=== PATIENT | female | born 1930 | race Two or more races ===

== ENCOUNTER 2017-06-30 14:44 | Emergency (ER) | payer SELFPAY ==
[2017-06-30 15:05] VITALS: BP 175/96; PULSE 88; TEMP 98.4; BMI 18.8
--- NOTE | 2017-06-30 16:01 | PDOC ---
History of Present Illness <Laura Sheldon - Last Filed: 06/30/17 17:39> - General History Source: Patient Exam Limitations: No Limitations - History of Present Illness Initial Comments: 06/30/17 17:51 The patient is an 86 year old female with history significant for chronic suprapubic catheter here today for suprapubic catheter exchange. She states that last night she noticed her catheter seemed to be getting blocked. Today, she noticed suprapubic discomfort and distention. She is still able to produce some urine through her catheter. No fever or chills. No nausea, vomiting, or diarrhea. She brought her own suprapubic catheter for exchange. <Sunshine Xiong - Last Filed: 06/30/17 17:55> - General Chief Complaint: Urinary Catheter Problem Stated Complaint: URINARY CATHETER CHANGE Time Seen by Provider: 06/30/17 14:45 Past History - Past Medical History COPD: No Disorders: Yes (SUPRPUBIC CATHETER) HTN: Yes - Suicide/Smoking/Psychosocial Hx Smoking History: Never smoked Hx Alcohol Use: No Drug/Substance Use Hx: No Substance Use Type: None <Laura Sheldon - Last Filed: 06/30/17 17:39> <Sunshine Xiong - Last Filed: 06/30/17 17:55> - Past Medical History Allergies/Adverse Reactions: Allergies Allergy/AdvReac Type Severity Reaction Status Date / Time Penicillins Allergy Unknown Verified 06/30/17 14:53 Home Medications: Ambulatory Orders Omeprazole 20 mg PO DAILY 06/30/17 Urinary Bag Accessories [Leg Bag Straps] 1 each ASDIR #1 each 06/30/17 Review of Systems - Review of Systems Able to Perform ROS?: Yes Comments:: 06/30/17 17:53 GENERAL/CONSTITUTIONAL: No fever or chills. No weakness. HEAD, EYES, EARS, NOSE AND THROAT: No change in vision. No ear pain or discharge. No sore throat. CARDIOVASCULAR: No chest pain or shortness of breath. RESPIRATORY: No cough, wheezing, or hemoptysis. GASTROINTESTINAL: No nausea, vomiting, diarrhea or constipation. GENITOURINARY: +Suprapubic discomfort, distention. No dysuria or hematuria. MUSCULOSKELETAL: No joint or muscle swelling or pain. No neck or back pain. SKIN: No rash NEUROLOGIC: No headache, vertigo, loss of consciousness, or change in strength/ sensation. ENDOCRINE: No increased thirst. No abnormal weight change. HEMATOLOGIC/LYMPHATIC: No anemia, easy bleeding, or history of blood clots. ALLERGIC/IMMUNOLOGIC: No hives or skin allergy. <Sunshine Xiong - Last Filed: 06/30/17 17:55> *Physical Exam - Vital Signs Last Vital Signs Temp Pulse Resp BP Pulse Ox 98.4 F 88 16 175/96 97 06/30/17 14:44 06/30/17 14:44 06/30/17 14:44 06/30/17 14:44 06/30/17 14:44 - Physical Exam Comments: GENERAL: Awake, alert, and fully oriented, in no acute distress HEAD: No signs of trauma EYES: PERRLA, EOMI, sclera anicteric, conjunctiva clear ENT: Auricles normal inspection, hearing grossly normal, nares patent, oropharynx clear without exudates. Moist mucosa NECK: Normal ROM, supple, no lymphadenopathy, JVD, or masses LUNGS: Breath sounds equal, clear to auscultation bilaterally. No wheezes, and no crackles HEART: Regular rate and rhythm, normal S1 and S2, no murmurs, rubs or gallops ABDOMEN: Soft, nontender, normoactive bowel sounds. No guarding, no rebound. + Mild bladder distension. +Suprapubic catheter, no drainage or erythema at the site. EXTREMITIES: Normal range of motion, no edema. No clubbing or cyanosis. No cords, erythema, or tenderness NEUROLOGICAL: Cranial nerves II through XII grossly intact. Normal speech, normal gait SKIN: Warm, Dry, normal turgor, no rashes or lesions noted. <Laura Sheldon - Last Filed: 06/30/17 17:39> - Vital Signs Last Vital Signs Temp Pulse Resp BP Pulse Ox 98.4 F 88 16 175/96 97 06/30/17 14:44 06/30/17 14:44 06/30/17 14:44 06/30/17 14:44 06/30/17 14:44 <Sunshine Xiong - Last Filed: 06/30/17 17:55> Procedures - Additional Procedures Additional Procedures: other Progress: Suprapubic catheter exchange- Previous balloon was deflated, removed. Noted to have small blood clot at the edge. Area was cleansed with betadine. Sterile 18Fr catheter was lubricated and placed in the tract. No resistance. Catheter passed easily, balloon inflated with 10 mL sterile water, then catheter was pulled back once the balloon was full. Clear yellow urine noted in the bag. Patient tolerated well. No complications. <Laura Sheldon - Last Filed: 06/30/17 17:39> *DC/Admit/Observation/Transfer - Discharge Dispostion Admit: No <Laura Sheldon - Last Filed: 06/30/17 17:39> - Attestations Scribe Attestion: 06/30/17 17:54 Documentation prepared by Sunshine Xiong, acting as certified medical coding specialist for Laura Sheldon MD. <Sunshine Xiong - Last Filed: 06/30/17 17:55> Diagnosis at time of Disposition: Blocked suprapubic catheter Qualifiers: Encounter type: initial encounter Qualified Code(s): T83.090A - Other mechanical complication of cystostomy catheter, initial encounter - Discharge Dispostion Disposition: HOME Condition at time of disposition: Improved - Prescriptions Prescriptions: Urinary Bag Accessories [Leg Bag Straps] 1 each ASDIR #1 each - Patient Instructions Printed Discharge Instructions: How to Care for a Suprapubic Catheter Print Language: FRENCH
== END 2017-06-30 16:18 | disposition home or self-care (01) ==
LOC: FER 14:44
PROC: 0T9B00Z Drainage of Bladder with Drainage Device, Open Approach (ICD-10-PCS; principal; 2017-06-30)
DX: T83.090A Other mechanical complication of cystostomy catheter, initial encounter (principal); R10.30 Lower abdominal pain, unspecified; I10 Essential (primary) hypertension; N39.9 Disorder of urinary system, unspecified
CPT/HCPCS: 99282-25